=== PATIENT | male | born 1975 | race Caucasian/White ===

== ENCOUNTER 2018-10-26 09:53 | Emergency (ER) | payer MEDICAID, OTHER ==
[~2018-10-26] VITALS: Ht 165.1 cm; Wt 63.5 kg
--- NOTE | 2018-10-26 09:55 | NUR ---
PT BIBA BLS TO ER BED 12
[2018-10-26 09:59] VITALS: BP 126/86
[2018-10-26 10:05] VITALS: BP 126/86
--- NOTE | 2018-10-26 10:05 | NUR ---
BIBA. C/O OF CHEST PAIN TO LEFT ANTERIOR CHEST TODAY FOR 1 HR, PT STATES 4/10 CHEST PAIN, NON RADIATING. AAO X4, NON DIAPHORETIC, NO SOB NOTED, VOMITTED X1 TODAY, NO NAUSEA, NO DIARRHEA. PLACED ON FULL MONITOR. ON LOW BED POSITION, LOCKED. BED RAILS X1 UP. HOB UP. WILL CONTINUE TO MONITOR. PMH: SHINGLES, SEIZURES HISTORY OF SX: APPENDECTOMY ALLERGIES: OZ VELAZQUEZ RX: DENIES
[2018-10-26] MEDS ORDERED: DEXAMETHASONE 10 MG/ML VIAL IVP ONE (10:15)
[2018-10-26] MEDS ORDERED: KETOROLAC 30 MG/ML VIAL IM ONE (10:15)
--- NOTE | 2018-10-26 10:25 | NUR ---
EDMD AT BEDSIDE PERFORMING MSE
--- NOTE | 2018-10-26 10:36 | NUR ---
XRAY AT BEDSIDE
--- NOTE | 2018-10-26 10:57 | NUR ---
refusing to give urine at this time, edmd aware
--- NOTE | 2018-10-26 11:00 | NUR ---
Pt laying on bed in supine position, eyes open, respirations e/u, on full monitor bed in low position, locked, no identified requests at this time. Will continue to monitor closely.
[2018-10-26 11:01] LABS: PROTHROMBIN TIME 9.3 secs (10.8-13.4)
[2018-10-26 11:10] LABS: ANION GAP 14.4 (8-16); CARBON DIOXIDE 26.9 mmol/L (21-32); CREATININE 1.3 mg/dL (0.7-1.3); POTASSIUM 4.3 mmol/L (3.5-5.1); TOTAL BILIRUBIN 0.5 mg/dL (0.0-1.0)
[2018-10-26 11:11] LABS: ALBUMIN 3.8 g/dL (3.4-5.0)
[2018-10-26 11:24] LABS: C-REACTIVE PROTEIN QUANT 0.2 mg/dL (0.0-0.9)
[2018-10-26 11:26] LABS: BASOPHILS # (AUTO) 0.1 K/uL (0.00-0.22); EOSINOPHILS # (AUTO) 0.1 K/uL (0-0.4); EOSINOPHILS % (AUTO) 1.1 % (0.0-4.0); HEMATOCRIT 41.8 % (36-52); HEMOGLOBIN 14.1 g/dL (12.0-18.0); LYMPHOCYTES # (AUTO) 1.9 K/uL (2.0-11.5); LYMPHOCYTES % (AUTO) 21.4 % (20.5-51.1); MEAN CORPUSCULAR HEMOGLOBIN 29 pg (27-31); MEAN CORPUSCULAR HGB CONC 34 g/dL (33-37); MEAN CORPUSCULAR VOLUME 86.9 fL (80-94); MONOCYTES # (AUTO) 0.7 K/uL (0.8-1.0); NEUTROPHILS % (AUTO) 68.5 % (42.2-75.2); PLATELET COUNT (AUTO) 291 K/uL (140-450); RED BLOOD CELL COUNT(AUTO) 4.81 MIL/uL (4.20-6.10); RED CELL DISTRIBUTION WIDTH 12.9 % (11.6-13.7); WHITE BLOOD COUNT (AUTO) 8.8 K/uL (4.8-10.8)
[2018-10-26 11:27] LABS: MAGNESIUM 1.8 mg/dL (1.8-2.4)
--- NOTE | 2018-10-26 12:42 | NUR ---
ptrefusing to give urine at this time, edmd aware
--- NOTE | 2018-10-26 13:28 | NUR ---
PATIENT LEFT WITHOUT BEING SEEN BY DR. RUSSELL. NO FURTHER CARE PROVIDED FOR PATIENT.PATIENT ELOPED FROM FACILITY. DISCHARGE INSTRUCTIONS NOT GIVEN TO PATIENT. DR. RUSSELL NOTIFIED.
[2018-10-26 22:58] LABS: BARBITURATE, URINE NEG. ng/ml (NEG <=200); BENZODIAZEPINE, URINE NEG. ng/mL (NEG <=200); CANNABINOID, URINE POS. ng/mL (NEG <=50); COCAINE, URINE NEG. ng/mL (NEG <=300); OPIATE, URINE NEG. ng/mL (NEG <=2000); PHENCYCLIDINE SCREEN,URINE NEG. ng/mL (NEG <=25)
== END 2018-10-26 13:28 | disposition left against medical advice (07) ==
LOC: MED 09:53
DX: R07.89 Other chest pain (principal); R06.00 Dyspnea, unspecified; M25.561 Pain in right knee; M25.562 Pain in left knee; Z59.0 Homelessness; Z90.49 Acquired absence of other specified parts of digestive tract
CPT/HCPCS: 36415; 71045; 80053; 80305; 83735; 83880; 84484; 85025; 85379; 85610; 85730; 86140; 93005; 96372; 96374; 99284; G0482; J1100; J1885; Q0092

== ENCOUNTER 2019-07-16 04:15 | Emergency (ER) | payer MEDICAID | END 2019-07-16 04:51 | LOC: MED 04:15 | DX: Z02.89 Encounter for other administrative examinations (principal); R56.9 Unspecified convulsions | CPT/HCPCS: 99283 ==

== ENCOUNTER 2019-07-30 00:07 | Emergency (ER) | payer MEDICAID ==
[~2019-07-30] VITALS: Ht 167.6 cm; Wt 65.8 kg
[2019-07-30 00:07] VITALS: BP 140/88
--- NOTE | 2019-07-30 00:07 | NUR ---
PT NEYMAR ALS. TAKEN TO BED 6
--- NOTE | 2019-07-30 00:40 | NUR ---
44 Y/O M NEYMAR FROM [facility] PRESENTS TO ED WITH C/O CHEST PAIN X2 DAYS. PT SEEN AT [facility] YESTERDAY FOR THE SAME SYMPTOMS. PT REPORTS "MY LUNGS HURT BAD." PAIN LOCATED AT RT PECTORALIS MAJOR, NON-RADIATING. PT REPORTS USING METH X3 DAYS AGO AND DRINKING ALCOHOL TODAY. HEART SOUNDS HAVE REGULAR RATE AND RHYTHM. NO TENDERNESS NOTED TO CHEST. BEDRAIL X2 UP. WILL CONTINUE TO MONITOR.
[2019-07-30] MEDS ORDERED: KETOROLAC 60 MG/2 ML VIAL IM ONE (01:10)
--- NOTE | 2019-07-30 01:54 | NUR ---
Raeann kay in ED - 07/30/19 at [address] Johnson examining patient.
--- NOTE | 2019-07-30 01:54 | NUR ---
DR. SEGAL AT BEDSIDE EVALUATING PT
[2019-07-30 02:09] VITALS: BP 140/88
--- NOTE | 2019-07-30 02:09 | NUR ---
Patient discharged with v/s stable. Written and verbal after care instructions given and explained. Patient alert, oriented and verbalized understanding of instructions. Ambulatory with steady gait. All questions addressed prior to discharge. ID band removed. Patient advised to follow up with PMD. Rx of MOTRIN 800MG given. Patient educated on indication of medication including possible reaction and side effects. Opportunity to ask questions provided and answered. PT REFUSED TO SIGN DISCHARGE PAPERWORK.
== END 2019-07-30 02:09 | disposition home or self-care (01) ==
LOC: MED 00:07
DX: R07.89 Other chest pain (principal); F17.210 Nicotine dependence, cigarettes, uncomplicated
CPT/HCPCS: 93005; 96372; 99283; J1885

== ENCOUNTER 2019-08-12 01:22 | Emergency (ER) | payer MEDICAID ==
[~2019-08-12] VITALS: Ht 162.6 cm; Wt 61.2 kg
[2019-08-12 01:30] VITALS: BP 160/90
--- NOTE | 2019-08-12 01:30 | NUR ---
TO BED # 07 AMBULATORY
--- NOTE | 2019-08-12 01:40 | NUR ---
44 Y/O MALE C/O DIFF OF BREATHING, STARTED TODAY ,FOR PSYCH EVAL. PATIENT STATES" I RAN ACROSS THE FREEWAY TO GET TO THE HOSPITAL BECAUSE PEOPLE ARE FOLLOWING ME. I'VE ALSO HAD A SEIZURES ONCE EVERY MONTH". NO PAIN AT THIS TIME. BREATHING UNLABORED AND SYMMETRICAL. 94% ON RA. ERMD MADE AWARE. SEIZURE PRECAUTIONS IN PLACE AND PLACED ON MONITOR. PMH: SEIZURES RX: DENIES NKDA
--- NOTE | 2019-08-12 01:55 | NUR ---
ERMD AT BEDSIDE EVALUATING PATIENT.
[2019-08-12] MEDS ORDERED: NACL 0.9% 1,000 ML IV ONE ×2 (02:00→03:00)
--- NOTE | 2019-08-12 02:10 | NUR ---
TELEPSYCH INITIATED PER DR. Ira HOLLY
[2019-08-12 02:22] LABS: BASOPHILS # (AUTO) 0.1 K/uL (0.00-0.22); EOSINOPHILS # (AUTO) 0.2 K/uL (0-0.4); EOSINOPHILS % (AUTO) 1.4 % (0.0-4.0); HEMATOCRIT 39.7 % (36-52); HEMOGLOBIN 12.9 g/dL (12.0-18.0); LYMPHOCYTES % (AUTO) 14.5 % (20.5-51.1); MEAN CORPUSCULAR HEMOGLOBIN 29 pg (27-31); MEAN CORPUSCULAR HGB CONC 33 g/dL (33-37); MEAN CORPUSCULAR VOLUME 89.3 fL (80-94); MONOCYTES # (AUTO) 1.3 K/uL (0.8-1.0); MONOCYTES % (AUTO) 9.9 % (1.7-9.3); NEUTROPHILS # (AUTO) 9.9 K/uL (1.8-7.7); NEUTROPHILS % (AUTO) 73.2 % (42.2-75.2); PLATELET COUNT (AUTO) 363 K/uL (140-450); RED BLOOD CELL COUNT(AUTO) 4.45 MIL/uL (4.20-6.10); RED CELL DISTRIBUTION WIDTH 13.3 % (11.6-13.7); WHITE BLOOD COUNT (AUTO) 13.6 K/uL (4.8-10.8)
[2019-08-12 02:37] LABS: ALBUMIN 4.1 g/dL (3.4-5.0); ANION GAP 15.7 (8-16); CARBON DIOXIDE 29.3 mmol/L (21-32); CHLORIDE 100 mmol/L (98-107); CREATININE 1.8 mg/dL (0.7-1.3); GFR ARICAN-AMERICAN 53 mL/min (>90); GLUCOSE 95 mg/dL (74-106); SODIUM SERUM 141 mmol/L (136-145); UREA NITROGEN, BLOOD 36 mg/dL (7-18)
[2019-08-12 02:56] LABS: SALICYLATE < 2.8 mg/dL (2.8-20.0)
[2019-08-12 02:57] LABS: ASPARTATE AMINOTRANSFERASE 85 U/L (15-37); TOTAL BILIRUBIN 0.6 mg/dL (0.0-1.0)
--- NOTE | 2019-08-12 03:00 | NUR ---
PATIENT IS SITTING QUIETLY IN BED. VSS. WILL CONTINUE TO MONITOR.
[2019-08-12 03:40] LABS: APPEARANCE,URINE CLEAR (CLEAR); BILIRUBIN,URINE NEGATIVE (NEGATIVE); BLOOD, URINE TRACE-I (NEGATIVE); COLOR,URINE YELLOW (YELLOW); LEUKOCYTE ESTERASE ,URINE NEGATIVE (NEGATIVE); NITRITE, URINE NEGATIVE (NEGATIVE); UGLUCOSE NEGATIVE (NEGATIVE)
[2019-08-12] MEDS ORDERED: ACETAMINOPHEN EXTRA STRENGTH 500 MG TAB PO ONE (03:55)
[2019-08-12 03:57] LABS: BARBITURATE, URINE NEGATIVE ng/ml (NEG <=200); BENZODIAZEPINE, URINE NEGATIVE ng/mL (NEG <=200); CANNABINOID, URINE POSITIVE ng/mL (NEG <=50); COCAINE, URINE NEGATIVE ng/mL (NEG <=300)
[2019-08-12 03:58] LABS: OPIATE, URINE NEGATIVE ng/mL (NEG <=2000); PHENCYCLIDINE SCREEN,URINE NEGATIVE ng/mL (NEG <=25)
[2019-08-12 04:03] LABS: RBC,URINE 11-20 (MOD) /HPF (0-5); WBC,URINE 0-5 /HPF (0-5)
--- NOTE | 2019-08-12 04:08 | NUR ---
Raeann kay in [facility] - 08/12/19 at 0408 by DONALD ERMD AT BEDSIDE EVALUATING PATIENT.
--- NOTE | 2019-08-12 04:17 | NUR ---
TELEPSYCH DOCTOR SPEAKING WITH ROMY VIA [employer]
[2019-08-12 05:08] VITALS: BP 126/82
--- NOTE | 2019-08-12 05:08 | NUR ---
Patient discharged with v/s stable. Written and verbal after care instructions given and explained. Patient verbalized understanding. Ambulatory with steady gait. All questions addressed prior to discharge. Advised to follow up with PMD.
[2019-08-12 06:47] LABS: ACETAMINOPHEN < 0.5 ug/ml (10-30)
== END 2019-08-12 05:08 | disposition home or self-care (01) ==
LOC: MED 01:22
DX: F19.10 Other psychoactive substance abuse, uncomplicated (principal); F19.20 Other psychoactive substance dependence, uncomplicated
CPT/HCPCS: 36415; 80053; 80305; 81001; 85025; 99283; G0480; G0482

== ENCOUNTER 2020-04-09 06:03 | Emergency (ER) | payer MEDICAID ==
[~2020-04-09] VITALS: Ht 162.6 cm; Wt 72.6 kg
[2020-04-09 06:05] VITALS: BP 141/95
--- NOTE | 2020-04-09 06:07 | NUR ---
PT TAKEN TO BED 11 WITH STEADY GAIT.
--- NOTE | 2020-04-09 06:16 | NUR ---
44 year old male biba for c/o anxiety attack while at [facility] in [place]. states that they are under a big amount stress especially when a close friend committed suicide. pt denies any other s/sx. denies any injury or trauma. awaiting MSE. pmhx: schizoaffective disorder, psychosis, anxiety, rhabdomyolysis. nka
--- NOTE | 2020-04-09 07:20 | NUR ---
report received from LARISSA Molina.
[2020-04-09] MEDS ORDERED: ALPRAZolam 0.25 MG TAB PO STA (07:22)
[2020-04-09] MEDS ORDERED: ALPRAZolam 0.5 MG TAB ONE (07:33)
[2020-04-09 07:48] VITALS: BP 134/89
== END 2020-04-09 07:48 | disposition home or self-care (01) ==
LOC: MED 06:03
DX: F41.0 Panic disorder [episodic paroxysmal anxiety] (principal); F15.10 Other stimulant abuse, uncomplicated; G40.909 Epilepsy, unspecified, not intractable, without status epilepticus
CPT/HCPCS: 93005; 99283

== ENCOUNTER 2020-06-15 20:22 | Emergency (ER) | payer MEDICAID ==
[~2020-06-15] VITALS: Ht 162.6 cm; Wt 68.0 kg
[2020-06-15 20:22] VITALS: BP 131/97
== END 2020-06-15 20:32 ==
LOC: MED 20:22
DX: F19.10 Other psychoactive substance abuse, uncomplicated (principal); R56.9 Unspecified convulsions; F15.10 Other stimulant abuse, uncomplicated; Z02.89 Encounter for other administrative examinations
CPT/HCPCS: 99283

== ENCOUNTER 2022-03-26 00:55 | Emergency (ER) | payer MEDICAID ==
[~2022-03-26] VITALS: Ht 162.6 cm; Wt 63.5 kg
[2022-03-26 00:55] VITALS: BP 119/72
--- NOTE | 2022-03-26 01:00 | NUR ---
PT NEYMAR BLS. TAKEN TO BED 5
[2022-03-26 01:27] LABS: BASOPHILS # (AUTO) 0.1 K/uL (0.00-0.22); BASOPHILS % (AUTO) 1.4 % (0.0-2.0); EOSINOPHILS # (AUTO) 0.3 K/uL (0-0.4); EOSINOPHILS % (AUTO) 3.5 % (0.0-4.0); HEMATOCRIT 36.1 % (36-52); LYMPHOCYTES # (AUTO) 2.2 K/uL (2.0-11.5); LYMPHOCYTES % (AUTO) 26.1 % (20.5-51.1); MEAN CORPUSCULAR HEMOGLOBIN 29 pg (27-31); MEAN CORPUSCULAR HGB CONC 33 g/dL (33-37); MEAN CORPUSCULAR VOLUME 87.2 fL (80-94); MONOCYTES # (AUTO) 0.9 K/uL (0.8-1.0); MONOCYTES % (AUTO) 10.3 % (1.7-9.3); NEUTROPHILS # (AUTO) 4.9 K/uL (1.8-7.7); NEUTROPHILS % (AUTO) 58.7 % (42.2-75.2); PLATELET COUNT (AUTO) 280 K/uL (140-450); RED BLOOD CELL COUNT(AUTO) 4.14 MIL/uL (4.20-6.10); RED CELL DISTRIBUTION WIDTH 13.3 % (11.6-13.7); WHITE BLOOD COUNT (AUTO) 8.4 K/uL (4.8-10.8)
--- NOTE | 2022-03-26 01:34 | NUR ---
Dr. Alvarado examining patient.
[2022-03-26 01:43] LABS: ALBUMIN 3.4 g/dL (3.4-5.0); ANION GAP 13.6 (8-16); ASPARTATE AMINOTRANSFERASE 33 U/L (15-37); CARBON DIOXIDE 26.8 mmol/L (21-32); CHLORIDE 104 mmol/L (98-107); CREATININE 1.3 mg/dL (0.6-1.3); GFR ARICAN-AMERICAN 77 mL/min (>90); GLUCOSE 93 mg/dL (74-106); POTASSIUM 3.4 mmol/L (3.5-5.1); SODIUM SERUM 141 mmol/L (136-145); TOTAL BILIRUBIN 0.8 mg/dL (0.0-1.0); UREA NITROGEN, BLOOD 23 mg/dL (7-18)
[2022-03-26 01:44] LABS: SALICYLATE < 2.8 mg/dL (2.8-20.0)
[2022-03-26 01:48] LABS: ACETAMINOPHEN < 0.5 ug/ml (10-30)
--- NOTE | 2022-03-26 01:53 | NUR ---
46 Y/O M NEYMAR, C/O SI. PT STATES HE IS SUICIDAL WITH PLAN TO RUN ONTO THE FW[place]. NKA OR PMH
--- NOTE | 2022-03-26 01:57 | NUR ---
REANNA SWABED AND HANDED TO THE LAB.
[2022-03-26 03:03] LABS: BARBITURATE, URINE NEGATIVE ng/ml (NEG <=200); BENZODIAZEPINE, URINE NEGATIVE ng/mL (NEG <=200)
[2022-03-26 03:04] LABS: CANNABINOID, URINE POSITIVE ng/mL (NEG <=50); COCAINE, URINE NEGATIVE ng/mL (NEG <=300); OPIATE, URINE NEGATIVE ng/mL (NEG <=2000); PHENCYCLIDINE SCREEN,URINE NEGATIVE ng/mL (NEG <=25)
--- NOTE | 2022-03-26 05:36 | NUR ---
TELEPSYCH INITIATED PER DR. CALLAHAN
--- NOTE | 2022-03-26 07:16 | NUR ---
Raeann kay in [facility] - 03/26/22 at 0820 by PHSEP REPORT RECEIVED FROM KLAUDIA VEGA ASSUMED CARE AT THIS TIME
--- NOTE | 2022-03-26 07:19 | NUR ---
REPORT RECEIVED FROM KLAUDIA CHRISTOPHER. ASSUMED CARE AT THIS TIME
--- NOTE | 2022-03-26 07:19 | NUR ---
GAVE REPORT TO JOSEPH CHRISTOPHER.
--- NOTE | 2022-03-26 07:47 | NUR ---
PT ON TELEPSYCH CALL FOR EVALUATION
--- NOTE | 2022-03-26 08:43 | NUR ---
Note undone in EDM - 03/26/22 at 1221 by PHSEP 46YO MALE PT BIBA FROM STREETS DUE TO SI. PT WAS FOUND TRYING TO WALK ON FREEWAY. PT STATES NEW ONSET OF SI DUE TO WITNESSING "FRIEND ALMOST OVERDOSING". PT STATES HES RECENTLY HAD THOUGHTS OF OVERDOSING ON OWN MEDS, EST 6DAYS AGO. STATES OCCASIONAL VOICES THAT TELL HIM TO "KILL HIMSELF", DENIES AT THIS TIME . DENIES PHYSICAL SELF HARM OR WANTING TO HURT OTHERS. DENIES N/V/D CHEST PAIN OR FEVERS. PT AAOX4, NO VISIBLE DISTRESS, RSPIRATIONS EVEN AND UNLABORED. ROOM STRIPPED OF POTENTIONAL HARMFUL ITEMS, PT IN VIEW, BED AT LOWEST POSITION , BED RAILS UP X2. HX: PARANOID SHIZO NKA
--- NOTE | 2022-03-26 08:50 | NUR ---
PT PROVIDED W/ BREAKFAST. PT AWAKE AND EATING IN BED
--- NOTE | 2022-03-26 10:28 | NUR ---
PER RAGINI FROM [facility], SHE SENT PACKET OUT TO FOLLOWING FACILITIES: [facility] ISABEL TORREY SHE STATED SHE WILL CONTINUE TO LOOK FOR PLACEMENT.
--- NOTE | 2022-03-26 12:11 | NUR ---
PT PROVIDED W/ LUNCH . PT AWAKE AND EATING IN BED
[2022-03-26 13:16] VITALS: BP 129/89
--- NOTE | 2022-03-26 13:25 | NUR ---
[facility] CONTACTED. REPORT GIVEN TO MARY DIAS AND MADE AWARE OF PENDING TX . ALL QUESITIONS ANSWERED. [phone] PT EXPECTED AT [facility] UNIT 1 ROOM 1002-B
--- NOTE | 2022-03-26 13:33 | NUR ---
[facility] AT BEDSIDE FOR TRANSPORT
--- NOTE | 2022-03-26 13:37 | NUR ---
Patient to be transferred to [facility]. Is being transferred due to HIGHER LEVEL OF CARE. Receiving facility has accepting physician and available space. ER physician has signed transfer form. Patient or responsible democrat has agreed to transfer and signed form. Patient belongings inventoried and will be sent with patient. Copy of nursing notes, lab reports, EKG, Physicians Orders and X-rays to be sent with patient. Report called to MARY DIAS BY JOSEPH CHRISTOPHER at receiving facility. [facility] ambulance service has been called for transfer. ETA is 1HR.
[2022-03-26] MEDS ORDERED: QUEtiapine FUMARATE 100 MG TAB PO SCH (17:00)
[2022-03-26] MEDS ORDERED: levETIRAcetam 500 MG TAB PO ONE (21:00)
[2022-03-27] MEDS ORDERED: NICOTINE TRANSD SYS 21 MG/24 HR PATCH TD SCH (09:00)
== END 2022-03-26 13:37 ==
LOC: MED 00:55
DX: R45.851 Suicidal ideations (principal); Z20.822 Contact with and (suspected) exposure to COVID-19
CPT/HCPCS: 36415; 80053; 80305; 85025; 87426; 87635; 93005; 99285; C9803; G0480; G0482

== ENCOUNTER 2022-04-03 22:50 | Emergency (ER) | payer MEDICAID ==
[~2022-04-03] VITALS: Ht 162.6 cm; Wt 68.0 kg
[2022-04-03 22:57] VITALS: BP 143/113
== END 2022-04-03 23:14 | disposition left against medical advice (07) ==
LOC: MED 22:50
DX: Z76.0 Encounter for issue of repeat prescription (principal); Z53.21 Procedure and treatment not carried out due to patient leaving prior to being seen by health care provider

== ENCOUNTER 2022-04-21 02:26 | Emergency (ER) | payer MEDICAID ==
[~2022-04-21] VITALS: Ht 165.1 cm; Wt 68.0 kg
[2022-04-21 02:29] VITALS: BP 141/84
--- NOTE | 2022-04-21 02:29 | NUR ---
pt offloaded to [facility]
--- NOTE | 2022-04-21 05:35 | NUR ---
Patient discharged with v/s stable. Written and verbal after care instructions given and explained BY DR. FAIRBANKS. Patient verbalized understanding. Ambulatory with steady gait. All questions addressed prior to discharge. Advised to follow up with PMD. Addendum: 04/21/22 at 0636 by [employer] CLEARED FOR PREBOOKING BY DR. FAIRBANKS. FORM GIVEN TO OFFICER JAE, #[phone]
== END 2022-04-21 05:35 | disposition home or self-care (01) ==
LOC: MED 02:26
DX: R06.02 Shortness of breath (principal); F17.210 Nicotine dependence, cigarettes, uncomplicated
CPT/HCPCS: 71045; 99283